=== PATIENT | female | born 1960 | race Caucasian/White ===

== ENCOUNTER → 2019-12-11 08:54 | Outpatient (CLI) | payer BC, SELFPAY ==
--- NOTE | ~2019-12-11 | XR_ITS ---
XR hand RT 2V 12/11/2019 09:15 INDICATION: Right hand pain PROCEDURE: 2 views right hand COMPARISON: No prior studies for comparison. FINDINGS: Fracture, dislocation or subluxation is not identified. The soft tissues appear within norm al limits. No foreign bodies are identified. IMPRESSION: 1: NO ACUTE BONE OR JOINT ABNORMALITY IDENTIFIED. Reviewed, dictated and finalized at location A.
== END ==
PROVIDERS: PCP Family Medicine; Visit Provider Family Medicine
DX: M79.641 Pain in right hand (principal)
CPT/HCPCS: 73120

== ENCOUNTER 2020-03-14 11:30 | Outpatient (CLI) | payer BC, SELFPAY ==
--- NOTE | 2020-03-14 11:30 | ECG_ITS ---
Measurements Intervals [place] Rate: 75 P: 12 HI: 138 QRS: -27 QRSD: 87 T: 26 QT: 377 QTc: 423 Interpretive Statements SINUS RHYTHM LOW QRS VOLTAGE IN PRECORDIAL LEADS POOR R WAVE PROGRESSION, ANTERIOR LEADS BORDERLINE ECG Electronically Signed On 03-14-2020 12:18:38 CDT by John Pelletier D.O.
[2020-03-14 11:55] LABS: Hematocrit 43.4 % (37.0-47.0); Hemoglobin 14.3 g/dL (12.0-15.0)
== END 2020-03-14 11:31 ==
LOC: ANHSURGERY 04-16 11:54
PROVIDERS: PCP Family Medicine; Visit Provider Obstetrics & Gynecology
DX: E78.2 Mixed hyperlipidemia (principal); N89.8 Other specified noninflammatory disorders of vagina
CPT/HCPCS: 36415; 85014; 85018; 93005

== ENCOUNTER 2020-03-19 01:01 | Outpatient (CLI) | payer BC, SELFPAY ==
[2020-03-19 18:10] LABS: SARS-CoV-2 RNA PCR Negative
== END 2020-03-19 01:02 | disposition home or self-care (01) ==
LOC: ANHCOVIDDT 01:01
PROVIDERS: PCP Family Medicine; Visit Provider Obstetrics & Gynecology
DX: Z20.828 Contact with and (suspected) exposure to other viral communicable diseases (principal); Z01.812 Encounter for preprocedural laboratory examination
CPT/HCPCS: 87635; C9803; U0003

== ENCOUNTER 2020-03-21 04:51 | Day surgery (SDC) | payer BC, SELFPAY ==
[2020-03-12 11:51] VITALS: BMI 29.5
--- NOTE | 2020-03-18 08:03 | PM.IMHP ---
H&P: HPI History of Present Illness Chief complaint: Vaginal Cuff Lesion (Low Grade BRITT) Narrative: Sarina Rod is a 59 year old female status post hysterectomy who is admitted for CO2 laser vaginal cuff. She ever cut dysplasia. She is admitted for [facility] Past Medical History Medical History Cataracts, both eyes Endometriosis Hepatitis C antibody test negative Mammogram normal (~09/21/19) Surgical History Surgical History H/O section H/O colonoscopy Family History Family History Grandparent Diabetes mellitus Family history of cardiovascular disease Family history of coronary artery disease Father Hypertension Family history of elevated blood lipids Family history of malignant neoplasm of stomach Sibling Hypertension Family history of elevated blood lipids Mother Family history of rheumatoid arthritis Social History Social History Alcohol intake: current Meds Home Medications and Allergies Home Medications Medication Instructions Recorded Confirmed Type aspirin 81 mg tablet,delayed 81 mg PO DAILY 11/08/19 03/12/20 History release lutein 25 mg-zeaxanthin 5 mg 1 cap PO DAILY 11/08/19 03/12/20 History capsule multivit with 1 tablet PO DAILY 11/08/19 03/12/20 History xclexsfb-ntsk-CG-lutein 8 mg iron-400 mcg-300 mcg tablet albuterol sulfate 90 mcg/actuation 2 inhalation INHALATION Q4H PRN 11/09/19 03/12/20 Rx aerosol inhaler #8.5 gm calcium carbonate 600 mg(1,500 1 tablet PO DAILY 11/09/19 03/12/20 History mg)-vitamin D3 800 unit chewable tablet fluconazole 200 mg tablet 200 mg PO WEEKLY tablet 11/09/19 03/12/20 History atorvastatin 10 mg tablet 10 mg PO DAILY #30 tablet 02/05/20 03/12/20 Rx ibuprofen 600 mg PO TID PRN 03/12/20 03/12/20 History Allergies Allergy/AdvReac Type Severity Reaction Status Date / Time doxycycline AdvReac Abdominal Verified 03/12/20 11:52 Pain Exam Const: General: no acute distress Eyes: General: appearance normal, both eyes and all related structures Neck: Neck: supple and no JVD Thyroid: thyroid normal Resp: Effort & Inspection: normal respiratory effort Auscultation: clear to auscultation bilaterally Cardio: Rate: regular rate Rhythm: regular rhythm GI: Inspection: non-distended GI Palp: Yes Soft to palpation, No Tenderness to palpation present (GI) and No Guarding due to palpation present (GI) Auscultation: normal bowel sounds : General: Yes bladder normal to inspection External Female Exam: normal external appearance Speculum Exam - Cervix: Cervix absent Bimanual exam- vagina & uterus: uterus absent Skin: General skin exam: no rashes or lesions noted Extrem: General: normal to inspection and no edema Psych: Mental Status: mental status grossly normal Affect: normal affect Assessment and Plan Additional Plan Impression: Vaginal cuff dysplasia Plan: CO2 laser of the vaginal cuff
--- NOTE | 2020-03-21 06:31 | WPDHPUPDATE1 ---
History and Physical Update Update Date/Time: 03/21/20 06:31 History and Physical has been reviewed, including an updated exam of the patient. There are NO changes in the patient's condition. Risks, benefits, and alternatives have been discussed and questions answered. Patient agrees to proceed with procedure.
[2020-03-21 07:45] VITALS: BP 129/78; PULSE 79; RESP 18; TEMP 36.7; O2SAT 98
[2020-03-21] MEDS: LACTATED RINGERS 1,000 ML 30 ML IV CONT (08:15)
--- NOTE | 2020-03-21 08:45 | P.PNAN_ITS ---
Anes - Initial Pre Proc Eval Procedure: Operation Date: 03/21/20 09:30 Proposed Procedures p CO2 Laser Of Vaginal Cuff Lesion - Juan Claudio MD Date/Time: 03/21/20 08:45 Surgeon: Juan Claudio MD Pre Op Diagnosis: Vaginal Cuff Lesion (Low Grade BRITT) Patient Data Age: 59 Gender: F Height: 5 ft 4 in Weight: 79.2 kg Last Vital Signs Temp 36.7 C 03/21/20 07:45 Pulse 79 03/21/20 07:45 Resp 18 03/21/20 07:45 BP 129/78 03/21/20 07:45 Pulse Ox 98 03/21/20 07:45 Allergies Allergy/AdvReac Type Severity Reaction Status Date / Time doxycycline AdvReac Abdominal Verified 03/21/20 08:18 Pain Home Medications Medication Instructions Recorded Confirmed Type aspirin 81 mg tablet,delayed 81 mg PO DAILY 11/08/19 03/12/20 History release lutein 25 mg-zeaxanthin 5 mg 1 cap PO DAILY 11/08/19 03/12/20 History capsule multivit with 1 tablet PO DAILY 11/08/19 03/12/20 History csqkwqla-cfsz-XW-lutein 8 mg iron-400 mcg-300 mcg tablet albuterol sulfate 90 mcg/actuation 2 inhalation INHALATION Q4H PRN 11/09/19 03/12/20 Rx aerosol inhaler #8.5 gm calcium carbonate 600 mg(1,500 1 tablet PO DAILY 11/09/19 03/12/20 History mg)-vitamin D3 800 unit chewable tablet fluconazole 200 mg tablet 200 mg PO WEEKLY tablet 11/09/19 03/12/20 History atorvastatin 10 mg tablet 10 mg PO DAILY #30 tablet 02/05/20 03/12/20 Rx ibuprofen 600 mg PO TID PRN 03/12/20 03/12/20 History hydrocodone-acetaminophen [[place]] 1 tablet PO Q4H PRN #20 tablet 03/21/20 Rx Patient hx anesthesia problems: none Family hx anesthesia problems: none PMFSH Past Medical History Medical History Cataracts, both eyes Endometriosis Hepatitis C antibody test negative Mammogram normal (~09/21/19) Surgical History Surgical History H/O section H/O colonoscopy Family History Family History Grandparent Diabetes mellitus Family history of cardiovascular disease Family history of coronary artery disease Father Hypertension Family history of elevated blood lipids Family history of malignant neoplasm of stomach Sibling Hypertension Family history of elevated blood lipids Mother Family history of rheumatoid arthritis Social History Social History Alcohol intake: current Anes - Eval Final PreProcedure Day of Procedure 03/21/20 08:45 Patient weight: obese Heart: regular rate and rhythm Lungs: decreased breath sounds Airway: Mallampati scale class II Neurological: alert and oriented Last oral intake: >/= 8 hours ASA classification: III Emergent: no Anesthetic plan: proceed Anesthesia type and monitoring: general GIVS and standard monitoring Informed Consent: The patient's anesthetic plan and its attendant risks and benefits were discussed with the patient/family/POA. Questions were solicited and answers provided to the satisfaction of the patient/family/POA.
[2020-03-21 09:22] VITALS: BP 104/67; PULSE 72; RESP 16; O2SAT 94
--- NOTE | 2020-03-21 09:22 | PM.PROC ---
Procedure Note - Detailed Date of procedure: 03/21/20 Pre-op diagnosis: Vaginal Cuff Lesion (Low Grade BRITT) Surgeon: Juan Claudio MD Postop diagnosis: Low-grade BRITT Procedure: CO2 laser of low-grade BRITT Anesthesia: IV sedation Findings: Absent cervix and uterus EBL: Scant Complications: None Description of procedure: The patient was prepped draped in normal sterile fashion placed in the dorsal lithotomy position. Under heavy IV sedation the bivalve speculum was placed in the vagina. The vagina was swabbed with ascetic acid. The areas of aceto-white were then burned with a CO2 laser at 10 w per 2nd. This was done in completion. Premarin cream was then placed in the vagina to help prevent scarring. Blood loss was none. Patient tolerated the procedure well. All sponge needle and instrument counts were correct
== END 2020-03-21 10:30 | disposition home or self-care (01) ==
PROVIDERS: PCP Family Medicine; Visit Provider Obstetrics & Gynecology
PROC: (CPT 57061; principal; 2020-03-21 09:30)
DX: N89.8 Other specified noninflammatory disorders of vagina (principal); Z90.710 Acquired absence of both cervix and uterus; Z79.82 Long term (current) use of aspirin
CPT/HCPCS: 57061; A9270; J2250; J2704; J3010; J7120

== ENCOUNTER 2020-10-01 15:46 | Outpatient (CLI) | payer BC, SELFPAY ==
--- NOTE | ~2020-10-01 | MM_ITS ---
EXAMINATION: MM screening [facility] BI w abad HISTORY: Screening mammogram TECHNIQUE: Craniocaudal and mediolateral oblique 3-D tomosynthesis images were obtained and synthetic 2-D images were generated. CAD analysis was submitted and interpreted. COMPARISON: 09/21/2019, 10/12/2018, 09/19/2018, 09/16/2017 BREAST PARENCHYMAL COMPOSITION: There are scattered areas of fibroglandular density. FINDINGS: There is no evidence of suspicious mass, calcification, or architectural distortion to sugg est malignancy in either breast. There has been no suspicious interval change. IMPRESSION: 1. No mammographic evidence of malignancy. 2. Recommend routine screening mammography in one year. BI-RADS Category 1: Negative Reviewed, dictated and finalized at location A. BLOWER
== END 2020-10-01 15:47 | disposition home or self-care (01) ==
PROVIDERS: PCP Family Medicine; Visit Provider Obstetrics & Gynecology
DX: Z12.31 Encounter for screening mammogram for malignant neoplasm of breast (principal)
CPT/HCPCS: 77063; 77067

== ENCOUNTER 2020-11-01 00:52 | Outpatient (CLI) | payer BC, SELFPAY ==
[2020-11-01 18:47] LABS: SARS-CoV-2 RNA PCR Negative
== END 2020-11-01 00:53 | disposition home or self-care (01) ==
LOC: ANHCOVIDDT 00:53
PROVIDERS: PCP Family Medicine; Visit Provider Internal Medicine Gastroenterology
DX: Z01.812 Encounter for preprocedural laboratory examination (principal); Z20.822 Contact with and (suspected) exposure to COVID-19
CPT/HCPCS: C9803; U0003; U0005

== ENCOUNTER 2020-11-05 01:18 | Day surgery (SDC) | payer BC, SELFPAY ==
[2020-10-21 13:58] VITALS: BMI 28.3
[2020-11-05] MEDS: LACTATED RINGERS 1,000 ML 150 ML IV CONT (06:30)
[2020-11-05 06:33] VITALS: BP 128/77; PULSE 85; RESP 18; TEMP 36.6; O2SAT 98; BMI 28.2
--- NOTE | 2020-11-05 06:58 | WPDANESEPPF ---
Anes - Initial Pre Proc Eval Procedure: Operation Date: 11/05/20 07:30 Proposed Procedures p Screening Colonoscopy - Nilton Swift MD Date/Time: 11/05/20 06:58 Surgeon: Nilton Swift MD Pre Op Diagnosis: Neoplasm Screening Patient Data Age: 60 Gender: F Height: 1.63 m Weight: 74.6 kg Last Vital Signs Temp 36.6 C 11/05/20 06:33 Pulse 85 11/05/20 06:33 Resp 18 11/05/20 06:33 BP 128/77 11/05/20 06:33 Pulse Ox 98 11/05/20 06:33 Allergies Allergy/AdvReac Type Severity Reaction Status Date / Time doxycycline AdvReac Abdominal Verified 11/05/20 06:21 Pain Home Medications Medication Instructions Recorded Confirmed Type aspirin 81 mg tablet,delayed 81 mg PO DAILY 11/08/19 10/21/20 History release lutein 25 mg-zeaxanthin 5 mg 1 cap PO DAILY 11/08/19 10/21/20 History capsule multivit with 1 tablet PO DAILY 11/08/19 10/21/20 History dntzzzwn-chhv-EV-lutein 8 mg iron-400 mcg-300 mcg tablet albuterol sulfate 90 mcg/actuation 2 inhalation INHALATION Q4H PRN 11/09/19 10/21/20 Rx aerosol inhaler #8.5 gm calcium carbonate 600 mg(1,500 1 tablet PO DAILY 11/09/19 10/21/20 History mg)-vitamin D3 800 unit chewable tablet ibuprofen 600 mg PO TID PRN 03/12/20 10/21/20 History atorvastatin 20 mg tablet 20 mg PO DAILY #90 tablet 08/26/20 10/21/20 Rx sodium,potassium,mag sulfates 17.5 See Rx Instructions PO .COMPLEX 10/20/20 Rx gram-3.13 gram-1.6 gram oral soln #354 ml terbinafine HCl 250 mg PO DAILY 10/21/20 10/21/20 History Patient hx anesthesia problems: none Family hx anesthesia problems: none PMFSH Past Medical History Medical History (Updated 11/05/20 @ 07:00 by Fortino Bullock MD) Cataracts, both eyes Endometriosis Hepatitis C antibody test negative Mammogram normal (~09/21/19) Mixed hyperlipidemia Nicotine dependence, unspecified, uncomplicated Overweight Surgical History Surgical History H/O section H/O colonoscopy Family History Family History Grandparent Diabetes mellitus Family history of cardiovascular disease Family history of coronary artery disease Father Hypertension Family history of elevated blood lipids Family history of malignant neoplasm of stomach Sibling Hypertension Family history of elevated blood lipids Mother Family history of rheumatoid arthritis Social History Social History Smoking packs per day: 0.5 Smoking cigarettes per day: 10.0 Years smoked: 60 Smoking pack-years: 30.00 Smoking status: Current every day smoker Tobacco type: cigarettes Alcohol intake: current Substance use type: does not use Living arrangements: with family Spiritual care concerns: No Anes - Eval Final PreProcedure Day of Procedure 11/05/20 06:58 Patient weight: overweight Heart: regular rate and rhythm Lungs: clear to auscultation and normal air movement Airway: Mallampati scale class II Neurological: alert and oriented Last oral intake: >/= 8 hours ASA classification: II Emergent: no Anesthetic plan: proceed Anesthesia type and monitoring: general GIVS Informed Consent: The patient's anesthetic plan and its attendant risks and benefits were discussed with the patient/family/POA. Questions were solicited and answers provided to the satisfaction of the patient/family/POA.
--- NOTE | 2020-11-05 07:59 | WPDGICN ---
Assessment and Plan Assessment and plan (1) Encounter for screening colonoscopy: Code(s): Z12.11 - Encounter for screening for malignant neoplasm of colon Status: Acute Assessment and Plan: Patient states that her father has had intestinal cancer she believes is colon cancer. Plan is for surveillance colonoscopy at this time. She may wish to consider follow-up colonoscopy at 5 year intervals in the future. Further recommendations will be given after endoscopy. GI Consult Note Consult date/time: 11/05/20 07:59 HPI: Sarina Rod is a 60 year old female Presents for screening colonoscopy. Patient reports that her father and her father side of the family has multiple cases of colon cancer. Patient presents for screening exam today. She states that her current weight appetite bowel movements are normal. She denies abdominal pain. She has had no bleeding. Family history is as stated. Patient reports last colonoscopy was 10 least 10 years ago. Review of Systems Review of Systems: All systems reviewed & are unremarkable except as noted in HPI and below PMFSH Past Medical History Medical History (Updated 11/05/20 @ 08:01 by Nilton Swift MD) Cataracts, both eyes Endometriosis Hepatitis C antibody test negative Mammogram normal (~09/21/19) Mixed hyperlipidemia Nicotine dependence, unspecified, uncomplicated Overweight Surgical History Surgical History H/O section H/O colonoscopy Family History Family History Grandparent Diabetes mellitus Family history of cardiovascular disease Family history of coronary artery disease Father Hypertension Family history of elevated blood lipids Family history of malignant neoplasm of stomach Sibling Hypertension Family history of elevated blood lipids Mother Family history of rheumatoid arthritis Social History Social History Smoking packs per day: 0.5 Smoking cigarettes per day: 10.0 Years smoked: 60 Smoking pack-years: 30.00 Smoking status: Current every day smoker Tobacco type: cigarettes Alcohol intake: current Substance use type: does not use Living arrangements: with family Spiritual care concerns: No Meds Home Medications and Allergies Home Medications Medication Instructions Recorded Confirmed Type aspirin 81 mg tablet,delayed 81 mg PO DAILY 11/08/19 10/21/20 History release lutein 25 mg-zeaxanthin 5 mg 1 cap PO DAILY 11/08/19 10/21/20 History capsule multivit with 1 tablet PO DAILY 11/08/19 10/21/20 History zoprgxmu-eyon-IM-lutein 8 mg iron-400 mcg-300 mcg tablet albuterol sulfate 90 mcg/actuation 2 inhalation INHALATION Q4H PRN 11/09/19 10/21/20 Rx aerosol inhaler #8.5 gm calcium carbonate 600 mg(1,500 1 tablet PO DAILY 11/09/19 10/21/20 History mg)-vitamin D3 800 unit chewable tablet ibuprofen 600 mg PO TID PRN 03/12/20 10/21/20 History atorvastatin 20 mg tablet 20 mg PO DAILY #90 tablet 08/26/20 10/21/20 Rx sodium,potassium,mag sulfates 17.5 See Rx Instructions PO .COMPLEX 10/20/20 Rx gram-3.13 gram-1.6 gram oral soln #354 ml terbinafine HCl 250 mg PO DAILY 10/21/20 10/21/20 History Allergies Allergy/AdvReac Type Severity Reaction Status Date / Time doxycycline AdvReac Abdominal Verified 11/05/20 06:21 Pain Vital Signs Vital Signs - 24 hr 11/05/20 06:33 Temperature 97.8 F Pulse Rate 85 Respiratory Rate 18 Blood Pressure 128/77 Pulse Oximetry 98 Exam Narrative: Exam Narrative: Physical exam reveals patient to be alert. Vital signs are stable. HEENT exam is unremarkable. Lungs are clear to auscultation and percussion. Heart is without murmur or extra sounds. Abdominal exam bowel sounds are present soft nontender with no organomegaly. Digital external rectal e
[2020-11-05 08:02] VITALS: BP 104/68; PULSE 68; RESP 15; O2SAT 95
[2020-11-05 08:12] VITALS: BP 113/75; PULSE 65; RESP 13; O2SAT 98
[2020-11-05 08:22] VITALS: BP 111/80; PULSE 68; RESP 13; O2SAT 99
== END 2020-11-05 08:39 | disposition home or self-care (01) ==
PROVIDERS: PCP Family Medicine; Visit Provider Internal Medicine Gastroenterology
PROC: 0DJD8ZZ Inspection of Lower Intestinal Tract, Via Natural or Artificial Opening Endoscopic (ICD-10-PCS; CPT 45378; principal; 2020-11-05 07:30)
DX: Z12.11 Encounter for screening for malignant neoplasm of colon (principal); Z79.82 Long term (current) use of aspirin; Z79.51 Long term (current) use of inhaled steroids; N80.9 Endometriosis, unspecified; E78.2 Mixed hyperlipidemia; F17.210 Nicotine dependence, cigarettes, uncomplicated; K64.8 Other hemorrhoids; Z80.0 Family history of malignant neoplasm of digestive organs
CPT/HCPCS: 45378; J2704; J7120

== ENCOUNTER → 2021-02-27 10:13 | Outpatient (CLI) | payer BC, SELFPAY ==
--- NOTE | ~2021-02-27 | CT_ITS ---
EXAMINATION: CT lung screening DATE: 02/27/2021 10:34 INDICATION: Personal history of nicotine dependence, current smoker with 35 pack year history TECHNIQUE: Computed tomography (CT) of the chest was performed without intravenous contrast. The dose -length product (DLP) was 87.73 mGy-cm. Automated exposure control and iterative reconstruction techn [employer] were employed. COMPARISON: None FINDINGS: There is a 2 mm nodule of the left lung apex on image 11. There are is mild emphysema. The lungs are free of acute opacities. There is no pleural effusion or pneumothorax. No pathologically en larged thoracic lymph nodes are identified. The heart size is normal. Calcified coronary artery ather osclerosis is noted. There is mild thoracic spondylosis. IMPRESSION: 1. Lung-RADS category 2: Benign appearance or behavior. Continue annual screening with noncontrast lo w-dose chest CT in 12 months. Reviewed, dictated and finalized at location B. IMPRESSION: 1. Lung-RADS category 2: Benign appearance or behavior. Continue annual screeni ng with noncontrast low-dose chest CT in 12 months.
== END ==
PROVIDERS: Visit Provider Family Medicine
DX: Z12.2 Encounter for screening for malignant neoplasm of respiratory organs (principal); Z87.891 Personal history of nicotine dependence
CPT/HCPCS: 71271

== ENCOUNTER 2021-04-29 15:17 | Outpatient (CLI) | payer BC, SELFPAY ==
--- NOTE | 2021-05-20 19:10 | WPDHOMESLEEP ---
Sleep Study - Home Unattended Date of Study: 04/29/21 Ordering Provider: Ricci Mims APRN Interpreting Provider: Jaylyn Casas MD Home Sleep Study Type: Apnea Link Air Height: 1.63 m Weight: 76.204 kg Body Mass Index: 28.8 Neck Circumference (inches): 15 [place]: 7 Reason for Sleep Study Hypersomnia Sleep History Sarina Rod is 60 years old, has frequent loud snoring and feels tired most days. She does not wake at night feeling short of breath, however she frequently wakes at night with heartburn, belching or coughing. She frequently sweats excessively at night. She constantly falls asleep in the day, never involuntarily and never while driving. She does not have loss of muscle tone with strong emotion. She occasionally has trouble in the day due to excessive sleepiness. She does not feel paralyzed on waking or falling asleep. She has frequent vivid dreamlike scenes on waking and falling asleep. She is not afraid to go to sleep. She rarely has nightmares. She frequently remembers her dreams and frequently has racing thoughts. She rarely feels sad or depressed. She occasionally has anxiety. She rarely has muscular tension. She occasionally notices parts of her body jerking. She does not kick at night. She occasionally has crawling and aching feelings in her legs. She occasionally has leg pain at night. She does not have morning jaw pain. She occasionally grinds her teeth during sleep. She rarely is bothered by pain during the day, rarely awakened by pain at night, frequently wakes up feeling stiff in the morning, occasionally wakes up with sore achy muscles and occasionally wakes up with pain in the neck and spine. She has palpitations and fatigue she takes antacids regularly. Normal bedtime is 10:00 p.m. falling asleep within an hour, typically waking 2-3 times at night to urinate, returning to sleep in 10 minutes. She wakes the morning between 5 and 6:00 a.m.. Her weekend schedule is the same. She estimates getting 6-7 hours of sleep at night. She takes naps in the afternoon or evening and a short nap may be refreshing. She feels better in the morning compared to other times of day. Habits: tobacco half pack per day. Caffeine, 4-5 per day. Alcohol 4 per week [facility] Past Medical History Medical History (Updated 05/20/21 @ 20:20 by Jaylyn Casas MD) Cataracts, both eyes Endometriosis Hepatitis C antibody test negative Mammogram normal (~09/21/19) Mixed hyperlipidemia Nicotine dependence, unspecified, uncomplicated Overweight Prehypertension Surgical History Surgical History H/O section H/O colonoscopy Family History Family History Grandparent Diabetes mellitus Family history of cardiovascular disease Family history of coronary artery disease Father Hypertension Family history of elevated blood lipids Family history of malignant neoplasm of stomach Sibling Hypertension Family history of elevated blood lipids Mother Family history of rheumatoid arthritis Social History Social History Smoking packs per day: 0.5 Smoking cigarettes per day: 10.0 Years smoked: 60 Smoking pack-years: 30.00 Tobacco type: cigarettes Alcohol intake: current Substance use type: does not use Spiritual care concerns: No Medications Home Medications Medication Instructions Recorded Confirmed Type aspirin 81 mg tablet,delayed 81 mg PO DAILY 11/08/19 02/17/21 History release lutein 25 mg-zeaxanthin 5 mg 1 cap PO DAILY 11/08/19 02/17/21 History capsule multivit with 1 tablet PO DAILY 11/08/19 02/17/21 History rkhkdcmw-sznu-DW-lutein 8 mg iron-400 mcg-300 mcg tablet albuterol sulfate 90 mcg/actuation 2 inhalation INHALATION Q4H PRN 11/09/19 02/17/21 Rx aerosol inhaler #8.5 gm calcium carbonate 600 mg(1
[2021-05-20 20:22] VITALS: BMI 28.8
== END 2021-04-30 09:12 | disposition home or self-care (01) ==
LOC: ANHCSM 15:18
PROVIDERS: Visit Provider Nurse Practitioner Family
DX: G47.33 Obstructive sleep apnea (adult) (pediatric) (principal); G47.10 Hypersomnia, unspecified
CPT/HCPCS: 95806

== ENCOUNTER → 2021-05-08 00:38 | Outpatient (CLI) | payer BC, SELFPAY ==
[2021-05-09 01:53] LABS: SARS-CoV-2 RNA PCR Negative
== END ==
PROVIDERS: PCP Family Medicine; Visit Provider Family Medicine
DX: Z20.822 Contact with and (suspected) exposure to COVID-19 (principal)
CPT/HCPCS: C9803; U0003; U0005

== ENCOUNTER 2021-07-21 08:34 | Outpatient (CLI) | payer BC, SELFPAY ==
--- NOTE | 2021-08-05 14:58 | WPDSLEEPSTUD ---
Sleep Study Date of Study: 07/21/21 Ordering Provider: Ricci Mims APRN Interpreting Physician: Jaylyn Casas MD Sleep Study Type: CPAP Titration Height: 1.63 m Weight: 77.1 kg Body Mass Index: 29.1 Neck Circumference (inches): 15 [place]: 7 Reason for Sleep Study * 04/29/2021 Home sleep test using ApneaLink with mild obstructive sleep apnea, AHI 9, desaturation to 87%, and snoring. The patient has pre-hypertension and hypersomnolence, and is a candidate for PAP therapy. She presents for a CPAP titration. Sleep History Sarina Rod is a 60-year-old woman who has frequent loud snoring and feels tired most days. She does not wake at night feeling short of breath, however she frequently wakes at night with heartburn, belching or coughing. She frequently sweats excessively at night. She constantly falls asleep in the day, never involuntarily and never while driving. She does not have loss of muscle tone with strong emotion. She occasionally has trouble in the day due to excessive sleepiness. She does not feel paralyzed on waking or falling asleep. She has frequent vivid dreamlike scenes on waking and falling asleep. She is not afraid to go to sleep. She rarely has nightmares. She frequently remembers her dreams and frequently has racing thoughts. She rarely feels sad or depressed. She occasionally has anxiety. She rarely has muscular tension. She occasionally notices parts of her body jerking. She does not kick at night. She occasionally has crawling and aching feelings in her legs. She occasionally has leg pain at night. She does not have morning jaw pain. She occasionally grinds her teeth during sleep. She rarely is bothered by pain during the day, rarely awakened by pain at night, frequently wakes up feeling stiff in the morning, occasionally wakes up with sore achy muscles and occasionally wakes up with pain in the neck and spine. She has palpitations and fatigue she takes antacids regularly. Normal bedtime is 10:00 p.m. falling asleep within an hour, typically waking 2-3 times at night to urinate, returning to sleep in 10 minutes. She wakes the morning between 5 and 6:00 a.m.. Her weekend schedule is the same. She estimates getting 6-7 hours of sleep at night. She takes naps in the afternoon or evening and a short nap may be refreshing. She feels better in the morning compared to other times of day. Habits: tobacco half pack per day. Caffeine, 4-5 per day. Alcohol 4 per week [facility] Past Medical History Medical History Cataracts, both eyes Endometriosis Hepatitis C antibody test negative Mammogram normal (~09/21/19) Mixed hyperlipidemia Nicotine dependence, unspecified, uncomplicated Overweight Prehypertension Surgical History Surgical History H/O section H/O colonoscopy Family History Family History Grandparent Diabetes mellitus Family history of cardiovascular disease Family history of coronary artery disease Father Hypertension Family history of elevated blood lipids Family history of malignant neoplasm of stomach Sibling Hypertension Family history of elevated blood lipids Mother Family history of rheumatoid arthritis Social History Social History Smoking packs per day: 0.5 Smoking cigarettes per day: 10.0 Years smoked: 60 Smoking pack-years: 30.00 Tobacco type: cigarettes Alcohol intake: current Substance use type: does not use Spiritual care concerns: No Medications Home Medications Medication Instructions Recorded Confirmed Type aspirin 81 mg tablet,delayed 81 mg PO DAILY 11/08/19 06/25/21 History release lutein 25 mg-zeaxanthin 5 mg 1 cap PO DAILY 11/08/19 06/25/21 History capsule multivit with 1 tablet PO DAILY 11/08/19
[2021-08-12 12:17] VITALS: BMI 29.1
== END 2021-07-22 06:58 | disposition home or self-care (01) ==
LOC: ANHCSM 08:36
PROVIDERS: PCP Family Medicine; Visit Provider Nurse Practitioner Family
DX: G47.33 Obstructive sleep apnea (adult) (pediatric) (principal)
CPT/HCPCS: 95811

== ENCOUNTER 2021-10-22 07:31 | Outpatient (CLI) | payer BC, SELFPAY ==
--- NOTE | ~2021-10-22 | MM_ITS ---
EXAMINATION: MM screening danii BI w abad HISTORY: Screening TECHNIQUE: Craniocaudal and mediolateral oblique 3-D tomosynthesis images were obtained and synthetic 2-D images were generated. CAD analysis was submitted and interpreted. COMPARISON: Comparison to multiple prior studies sequentially, with oldest reviewed study dated 02/2016. BREAST PARENCHYMAL COMPOSITION: Breast composed of scattered areas of fibroglandular density FINDINGS: There is no evidence of suspicious mass, calcification, or architectural distortion to sugg est malignancy in either breast. There has been no suspicious interval change. IMPRESSION: 1. No mammographic evidence of malignancy. 2. Recommend routine screening mammography in one year. BI-RADS Category 1: Negative Reviewed, dictated and finalized at location A. TRANSPORT DRIVER
== END 2021-10-22 07:32 | disposition home or self-care (01) ==
LOC: ANHIMG 07:33
PROVIDERS: PCP Family Medicine; Visit Provider Obstetrics & Gynecology
DX: Z12.31 Encounter for screening mammogram for malignant neoplasm of breast (principal)
CPT/HCPCS: 77063; 77067

== ENCOUNTER → 2022-05-25 16:18 | Outpatient (CLI) | payer BC, SELFPAY ==
--- NOTE | ~2022-05-25 | XR_ITS ---
EXAMINATION: XR hand RT min 3V INDICATION: Right hand pain TECHNIQUE: Three views of the right hand are obtained. COMPARISON: 12/11/2019 FINDINGS: There is mild osteoarthritis of multiple interphalangeal joints. No fracture is identified. Bone alignment is normal. Soft tissues are unremarkable. IMPRESSION: 1. Mild osteoarthritis. Reviewed, dictated and finalized at location B. IMPRESSION: 1. Mild osteoarthritis.
--- NOTE | ~2022-05-25 | XR_ITS ---
XR knee RT min 4V 05/25/2022 16:43 Indication: Right knee pain Procedure: 4 views right knee Comparison: No prior studies for comparison. Findings: No fracture, subluxation or dislocation. No joint effusion. Mild patellofemoral compartment osteoarthritis. No foreign bodies. Impression: 1: Mild patellofemoral compartment osteoarthritis. Reviewed, dictated and finalized at location A. Impression: 1: Mild patellofemoral compartment osteoarthritis.
== END ==
PROVIDERS: PCP Family Medicine; Visit Provider Family Medicine
DX: M19.041 Primary osteoarthritis, right hand (principal); M17.11 Unilateral primary osteoarthritis, right knee
CPT/HCPCS: 73130; 73564

== ENCOUNTER → 2022-08-30 10:59 | Outpatient (CLI) | payer BC, SELFPAY ==
--- NOTE | ~2022-08-30 | CT_ITS ---
EXAMINATION: CT lung screening DATE: 08/30/2022 11:16 INDICATION: History of tobacco dependence. TECHNIQUE: Computed tomography (CT) of the chest was performed without intravenous contrast. The dose -length product was 89.95 mGy-cm. Automated exposure control and iterative reconstruction technique w ere employed. COMPARISON: CT dated 02/27/2021 FINDINGS: Lung bases are unremarkable. No thoracic lymphadenopathy. There is atherosclerosis. The upp er abdomen is unremarkable. There are stable upper lobe nodules measuring 3 mm or less. There is emph ysema. No endobronchial lesions. No pneumothorax. Mild thoracic spondylosis. No focal lytic or blasti c lesions. IMPRESSION: 1. Lung-RADS category 2: Benign appearance or behavior. Continue annual screening with noncontrast lo w-dose chest CT in 12 months. Reviewed, dictated and finalized at location A. RNAL GRINDER TENDER IMPRESSION: 1. Lung-RADS category 2: Benign appearance or behavior. Continue annual screeni ng with noncontrast low-dose chest CT in 12 months.
== END ==
PROVIDERS: PCP Family Medicine; Visit Provider Nurse Practitioner
DX: Z12.2 Encounter for screening for malignant neoplasm of respiratory organs (principal); Z87.891 Personal history of nicotine dependence
CPT/HCPCS: 71271

== ENCOUNTER 2022-09-19 17:03 | Emergency (ER) | payer BC, SELFPAY ==
--- NOTE | 2022-09-19 17:08 | ED.EAR ---
HPI - Ear Problem General Chief complaint: Ear Stated complaint: EARACHE Time Seen by Provider: 09/19/22 17:08 Source: patient Mode of arrival: ambulatory Limitations: no limitations History of Present Illness HPI Narrative: Today's is a 62-year-old female patient presenting to clinic today with complaints of an earache, cough, and congestion. She reports that the ear discomfort has been going on for a couple weeks but is also complain of some cough congestion. She denies any fever chills. She denies any shortness of breath or chest pain. Related Data Home Medications Medication Instructions Recorded Confirmed aspirin 81 mg tablet,delayed 81 mg PO DAILY 11/08/19 07/06/22 release multivit with 1 tablet PO DAILY 11/08/19 07/06/22 ytdzvjhb-ddco-BW-lutein 8 mg iron-400 mcg-300 mcg tablet (Centrum Silver Women) calcium carbonate 600 mg-vitamin 1 tablet PO DAILY 11/09/19 07/06/22 D3 20 mcg (800 unit) chewable tablet (Caltrate 600 plus D) ibuprofen 600 mg tablet 600 mg PO TID PRN Pain 03/12/20 07/06/22 ascorbic acid (vitamin C) 500 mg mg PO 05/25/22 07/06/22 capsule cholecalciferol (vitamin D3) 25 25 mcg PO DAILY 05/25/22 07/06/22 mcg (1,000 unit) capsule lutein 25 mg-zeaxanthin 5 mg 1 cap PO .QOD 05/25/22 07/06/22 capsule (Ocuvite Lutein) vitamin B complex-folic acid 0.4 1 tablet PO DAILY 05/25/22 07/06/22 mg tablet (Super B Maxi Complex) Allergies Allergy/AdvReac Type Severity Reaction Status Date / Time doxycycline AdvReac Abdominal Verified 09/19/22 17:11 Pain Review of Systems Review of Systems: Pertinent positives per HPI. Patient denies any fever, chills, rash, headache, visual changes, dizziness, shortness of breath, chest pain, palpitations, nausea, vomiting, diarrhea, constipation, abdominal pain, or any urinary issues. [facility] Past Medical History Medical History Cataracts, both eyes Endometriosis Hepatitis C antibody test negative Mammogram normal (~12/20/19) Mixed hyperlipidemia Nicotine dependence, unspecified, uncomplicated Overweight Prehypertension Surgical History Surgical History H/O section (~1999) H/O colonoscopy History of cataract surgery (~2015) History of hysterectomy (~07/16/16) Family History Family History Grandparent Diabetes mellitus Family history of cardiovascular disease Family history of coronary artery disease Father , age 52 Hypertension Family history of elevated blood lipids Stomach cancer Sibling Hypertension 4 of 5 brothers Family history of elevated blood lipids Diabetes mellitus 2 of 5 brothers Acute myocardial infarction 1 brother Lung cancer 1 brother @ age 64 Brain cancer 1 brother @ age 64 Mother Family history of rheumatoid arthritis MRSA (methicillin resistant Staphylococcus aureus) Social History Social History Smoking packs per day: 0.5 Smoking cigarettes per day: 10.0 Years smoked: 60 Smoking pack-years: 30.00 Smoking status: Current some day smoker Tobacco type: cigarettes Alcohol intake: current Substance use: never Substance use type: does not use Spiritual care concerns: No Comments At the time of my signature, I reviewed and agree with the nursing past medical, surgical, social, and family history. There is no relevant family history pertinent to the patient complaint. Exam Narrative: General: Well-developed, well nourished, in no apparent distress Head: Normocephalic, atraumatic Eyes: Pupils equally round and reactive to light bilaterally, EOM intact, sclera and conjunctive clear, no discharge, lids normal Ears: TMs intact and clear, ear canals clear, no drainage, grossly
[2022-09-19 17:10] VITALS: BP 133/85; PULSE 78; RESP 16; TEMP 36.6; O2SAT 99
[2022-09-19 17:12] VITALS: BP 133/85; PULSE 78; RESP 16; TEMP 36.6; O2SAT 99
== END 2022-09-19 17:26 | disposition home or self-care (01) ==
PROVIDERS: Emergency Provider Nurse Practitioner Family; PCP Family Medicine
DX: J20.9 Acute bronchitis, unspecified (principal); H69.93 Unspecified Eustachian tube disorder, bilateral; F17.210 Nicotine dependence, cigarettes, uncomplicated; N80.9 Endometriosis, unspecified; E78.2 Mixed hyperlipidemia; H26.9 Unspecified cataract
CPT/HCPCS: 99213; G0463

== ENCOUNTER 2022-10-12 16:09 | Outpatient (NON) | payer BC, SELFPAY | END 2022-10-12 16:10 | disposition home or self-care (01) | LOC: ANHLAB 10-13 16:11 | PROVIDERS: PCP Family Medicine; Visit Provider Nurse Practitioner | DX: C44.329 Squamous cell carcinoma of skin of other parts of face (principal) | CPT/HCPCS: 88305 ==

== ENCOUNTER 2022-11-01 11:52 | Outpatient (NON) | payer BC, SELFPAY | END 2022-11-01 11:53 | disposition home or self-care (01) | LOC: ANHLAB 11:52 | PROVIDERS: PCP Family Medicine; Visit Provider Nurse Practitioner | DX: C44.92 Squamous cell carcinoma of skin, unspecified (principal) | CPT/HCPCS: 88305; 88331 ==

== ENCOUNTER 2022-11-18 07:36 | Outpatient (CLI) | payer BC, SELFPAY ==
--- NOTE | ~2022-11-18 | MM_ITS ---
EXAMINATION: MM screening danii BI w abad HISTORY: Screening mammogram TECHNIQUE: Craniocaudal and mediolateral oblique 3-D tomosynthesis images were obtained and synthetic 2-D images were generated. CAD analysis was submitted and interpreted. COMPARISON: 10/22/2021, 10/01/2020, 09/21/2019 bilateral screening mammogram examinations BREAST PARENCHYMAL COMPOSITION: There are scattered areas of fibroglandular density. FINDINGS: There is no evidence of suspicious mass, calcification, or architectural distortion to sugg est malignancy in either breast. There has been no suspicious interval change. IMPRESSION: 1. No mammographic evidence of malignancy. 2. Recommend routine screening mammography in one year. BI-RADS Category 1: Negative Reviewed, dictated and finalized at location A. MIXER
== END 2022-11-18 07:37 | disposition home or self-care (01) ==
LOC: ANHIMG 07:37
PROVIDERS: PCP Family Medicine; Visit Provider Obstetrics & Gynecology
DX: Z12.31 Encounter for screening mammogram for malignant neoplasm of breast (principal)
CPT/HCPCS: 77063; 77067

== ENCOUNTER 2023-09-06 07:57 | Outpatient (CLI) | payer BC, SELFPAY ==
--- NOTE | ~2023-09-06 | CT_ITS ---
CT Scan of the Chest without Contrast: Clinical Indication: Lung cancer screening, smoking history Technique: Contiguous sections were acquired throughout the chest without intravenous contrast. Dose reduction technique was used on this scan by utilizing automated exposure control and iterative recon struction technique. The dose-length product (DLP) was 73.65 mGy-cm. COMPARISON: 08/30/2022 Findings: There is no evidence of any significant mediastinal, hilar or axillary lymphadenopathy. The mediastin al soft tissues appear normal. There is no evidence of pleural or pericardial effusion. The lungs are clear. No pulmonary nodules or infiltrates are noted. Images through the upper abdomen reveal no abnormalities. Impression: Lung RADS 1: Negative. 12 month follow-up screening CT advised. Reviewed, dictated and finalized at location . T AND INSTRUMENT ENGINEER Impression: Lung RADS 1: Negative. 12 month follow-up screening CT advised.
== END 2023-09-06 07:58 | disposition home or self-care (01) ==
PROVIDERS: PCP Family Medicine; Visit Provider Family Medicine
DX: Z12.2 Encounter for screening for malignant neoplasm of respiratory organs (principal); Z87.891 Personal history of nicotine dependence
CPT/HCPCS: 71271

== ENCOUNTER 2024-01-16 07:49 | Outpatient (CLI) | payer BC, SELFPAY ==
--- NOTE | ~2024-01-16 | DEXA_ITS ---
Bone Density Report Name: RANDI STROUD Age: 63 Sex: Female Ethnicity: White Date of : 1960 Indication: postmenopausal; screening for osteoporosis; parental hip fracture; height loss; hysterectomy; Referring Provider: EDENILSON MACHUCA Study: Bone densitometry was performed. Exam Date: January 16, 2024 Accession number: [id number] Bone Density: Region BMD T-score Z-score Classification AP Spine(L1-L4) 0.938 -1.0 0.7 Normal Femoral Neck (Left) 0.666 -1.6 -0.2 Osteopenia Total Hip (Left) 0.867 -0.6 0.5 Normal Femoral Neck (Right) 0.699 -1.4 0.1 Osteopenia Total Hip (Right) 0.907 -0.3 0.8 Normal Total Hip Mean 0.887 -0.5 0.7 Normal World Health Organization criteria for BMD impression classify patients as: Normal (T-score at or above -1.0), Osteopenia (T-score between -1.0 and -2.5), or Osteoporosis (T-score at or below -2.5). 10-year Fracture Risk(1): Major Osteoporotic Fracture 17% Hip Fracture 1.6% Reported Risk Factors: [place] (), Neck BMD=0.666, BMI=29.6, parental fracture, smoking (1) FRAX(R) Version 3.08. Fracture probability calculated for an untreated patient. Fracture probability may be lower if the patient has received treatment. Clinical Information Provided by Patient: Parent has had a hip fracture Smokes Has used the following medications: Vitamin D, Calcium Has the following medical conditions: Hysterectomy Patient maximum height was 65 Menopause Age: 52 Drinks caffeinated beverages Onset of menses at age 13 Number of children 1 Impression: The patient has low bone mass, based on the Left Femoral Neck T-score. The patient has an estimated ten-year risk of hip fracture of 1.6% and an estimated ten-year risk of major fracture of 17%, based on the WHO FRAX algorithm. The patient has risk factors, including: parental hip fracture, smoking. Discussion: BONE DENSITY IS LOW AT ONE OR MORE SKELETAL SITES. This patient's lowest T-score is low at one or more skeletal sites. It meets the World Health Organization's (WHO) criteria for ?low bone mass? (T-score between -1.0 and -2.5). The patient's 10-year risk of fracture as calculated by FRAX is less than the threshold where pharmacological therapy is recommended by the National Osteoporosis Foundation (NOF). However, all treatment decisions require clinical judgment and consideration of individual patient factors, including patient preferences, comorbidities, previous drug use, risk factors not captured in the FRAX model (e.g., frailty, falls, vitamin D deficiency, increased bone turnover, interval significant decline in bone density) and possible under or overestimation of fracture risk by FRAX. The patient should follow a healthful lifestyle (good nutrition with adequate calcium and vitamin D, and approp
--- NOTE | ~2024-01-16 | MM_ITS ---
EXAMINATION: MM screening danii BI w abad HISTORY: Screening TECHNIQUE: Craniocaudal and mediolateral oblique 3-D tomosynthesis images were obtained and synthetic 2-D images were generated. CAD analysis was submitted and interpreted. COMPARISON: Comparison to multiple prior studies sequentially, with oldest reviewed study dated 09/04. BREAST PARENCHYMAL COMPOSITION: Not dense: There are scattered areas of fibroglandular density. FINDINGS: There is no evidence of suspicious mass, calcification, or architectural distortion to sugg est malignancy in either breast. There has been no suspicious interval change. IMPRESSION: 1. No mammographic evidence of malignancy. 2. Recommend routine screening mammography in one year. BI-RADS Category 1: Negative Reviewed, dictated and finalized at location A.
== END 2024-01-16 07:50 | disposition home or self-care (01) ==
LOC: ANHIMG 07:55
PROVIDERS: PCP Family Medicine; Visit Provider Family Medicine
DX: Z12.31 Encounter for screening mammogram for malignant neoplasm of breast (principal); Z13.820 Encounter for screening for osteoporosis; Z78.0 Asymptomatic menopausal state; M85.88 Other specified disorders of bone density and structure, other site; M85.852 Other specified disorders of bone density and structure, left thigh; M85.851 Other specified disorders of bone density and structure, right thigh
CPT/HCPCS: 77063; 77067; 77080

== ENCOUNTER 2024-06-15 10:50 | Outpatient (CLI) | payer BC, SELFPAY | END 2024-06-15 10:51 | disposition home or self-care (01) | LOC: ANHAUDIO 10:50 | PROVIDERS: PCP Family Medicine; Visit Provider Family Medicine | DX: H90.3 Sensorineural hearing loss, bilateral (principal) | CPT/HCPCS: 92557; 92567 ==

== ENCOUNTER 2024-11-07 08:19 | Outpatient (CLI) | payer BC, SELFPAY ==
--- NOTE | ~2024-11-07 | CT_ITS ---
CT Scan of the Chest without Contrast: Clinical Indication: Lung cancer screening, nicotine dependence Technique: Contiguous sections were acquired throughout the chest without intravenous contrast. Dose reduction technique was used on this scan by utilizing automated exposure control and iterative recon struction technique. The dose-length product (DLP) was 104.35 mGy-cm. COMPARISON: 09/06/2023 Findings: There is no evidence of any significant mediastinal, hilar or axillary lymphadenopathy. The mediastin al soft tissues appear normal. There is no evidence of pleural or pericardial effusion. The lungs are clear. No pulmonary nodules or infiltrates are noted. Images through the upper abdomen reveal no abnormalities. Impression: Lung RADS 1: Negative. 12 month follow-up screening CT advised. Reviewed, dictated and finalized at location . ROOM TECHNICIAN Impression: Lung RADS 1: Negative. 12 month follow-up screening CT advised.
== END 2024-11-07 08:20 | disposition home or self-care (01) ==
LOC: MICIMG 08:20
PROVIDERS: PCP Family Medicine; Visit Provider Family Medicine
DX: Z12.11 Encounter for screening for malignant neoplasm of colon (principal); Z87.891 Personal history of nicotine dependence
CPT/HCPCS: 71271

== ENCOUNTER 2025-01-29 09:55 | Outpatient (CLI) | payer BC, SELFPAY ==
--- NOTE | ~2025-01-29 | XR_ITS ---
XR knee LT min 4V 01/29/2025 10:16 Indication: Left knee pain Procedure: 4 views left knee Comparison: No prior studies for comparison. Findings: No fracture, subluxation or dislocation. No significant joint effusion. There is mild osteo arthritis. No foreign bodies. Impression: 1: Mild osteoarthritis of the left knee. Reviewed, dictated and finalized at location A. Impression: 1: Mild osteoarthritis of the left knee.
== END 2025-01-29 09:56 | disposition home or self-care (01) ==
LOC: GOSHIMG 09:56
PROVIDERS: PCP Family Medicine; Visit Provider Family Medicine
DX: M17.12 Unilateral primary osteoarthritis, left knee (principal)
CPT/HCPCS: 73564

== ENCOUNTER 2025-03-06 07:59 | Outpatient (CLI) | payer BC, SELFPAY ==
--- NOTE | ~2025-03-06 | MM_ITS ---
EXAMINATION: MM screening danii BI w abad HISTORY: Screening mammogram TECHNIQUE: Craniocaudal and mediolateral oblique 3-D tomosynthesis images were obtained and synthetic 2-D images were generated. CAD analysis was submitted and interpreted. COMPARISON: 01/16/2024 through 09/21/2019 BREAST PARENCHYMAL COMPOSITION: There are scattered areas of fibroglandular density. FINDINGS: There is no evidence of suspicious mass, calcification, or architectural distortion to sug gest malignancy in either breast. There has been no suspicious interval change. IMPRESSION: 1. No mammographic evidence of malignancy. 2. Recommend routine screening mammography in one year. BI-RADS Category 1: Negative Reviewed, dictated and finalized at location B.
--- OUTSIDE RECORDS SUMMARY | 2025-03-06 08:03 | XMS_ITS | Encounter Summary ---
Author Organization [facility] Address [address] [place] [address] Care Team Providers Care Weaving Teacher Name Role Phone Hui Huggins DO Primary Care Provider [phone] Encounter Details Date Type Department Care Team (Late st Contact Info) Description 07/25/2020 Lab Requisition [facility] [address] [place] [address] Norbert De Oliveira MD [address] [place] [address] Social History Tobacco Use Types Packs/Day Years Used Date Smoking Tobacco: Every Day Cigarettes Alcohol Use Standard Drinks/Week Comments Not Asked 0 (1 standard drink = 0.6 oz pur e alcohol) Comments No Sex and Gender Information Value Date Recorded Sex Assigned at Not on file Legal Sex Female 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 Gender Identity Not on file Sexual Orientation Not on file documented as of this encounter Plan of Treatment Not on file documented as of this encounter Procedures Procedure Name Priority Date/Time Associated Diagnosis Comments DERMATOPATHOLOGY Routine 07/23/2020 12:0 0 AM CDT documented in this encounter Results * DERMATOPATHOLOGY (07/23/2020 12:00 AM CDT) Case Report Dermatopathology Report Case: [id number] Authorizing Provider: Norbert De Oliveira MD Collected: 07/23/2020 12:00 AM Ordering Location: [facility] Received: 07/25/2020 06:25 AM Pathologist: Amy Cody MD Specimen: Skin, right lower calf 0 1:30 PM CDT DERMATOPATHOLOGY LABORATORY Final Diagnosis Specimen A. SKIN, right lower calf: DERMATOFIBROMA (D23.9) 0 1:30 PM CDT DERMATOPATHOLOGY LABORATORY at 1330 CDT Clinical History R/O DF. 0 1:30 PM CDT DERMATOPATHOLOGY LABORATORY Gross Description Specimen A: Received is one formalin filled container labeled with the patient's name and designated right lower calf. The specimen consists of a punch biopsy measuring [id number], bisected. Jar 0. 0 1:30 PM CDT DERMATOPATHOLOGY LABORATORY Microscopic Description Specimen A. SKIN, right lower calf: There is epidermal hyperplasia. Within the dermis, there are fibrohistiocytic cells in haphazard array among coarse collagen bundles. 0 1:30 PM CDT DERMATOPATHOLOGY LABORATORY Disclaimer An external and internal positive and negative controls are appropriate for the histochemical, immunohistochemical and immunofluorescence stain(s) in this case (if any), except where stated explicitly. The performance characteristics of the stain(s) cited in this report were developed and its performance characteristic determined by the Dermatopathology Laboratory at [facility], directed by Dr. Lisandra Pacheco. These tests need not be, and therefore are not, approved by the [place] Food and Drug Administration. The tests are used for clinical purposes. Billing Codes Specimen Charges Stain Charges 37721 1 0 1:30 PM CDT DERMATOPATHOLOGY LABORATORY Embedded Images 0 1:30 PM CDT DERMATOPATHOLOGY LABORATORY Pathology/Cytolog y TISSUE SPECIMEN FROM SKIN / Unknown 07/23/2020 07/25/2020 6:25 AM CDT Norbert De Oliveira MD LAB - PATHOLOGY/CYTOLOGY ORD ERABLES Final Result DERMATOPATHOLOGY LABORATORY [facility] - Department of Dermatology [address], [address] [phone] documented in this encounter Visit Diagnoses Not on filedocumented in this encounter Care Teams Weaving Teacher Relationship Specialty Start Date End Date Hui Huggins DO [address] [place] [address] PCP - General 11/12/22 documented as of this encounter
--- OUTSIDE RECORDS SUMMARY | 2025-03-06 08:03 | XMS_ITS | Clinical Summary ---
Author Organization [facility] Address [address] [place] [address] Care Team Providers Care Forge Helper Name Role Phone Hui Huggins DO Primary Care Provider [phone] Source Comments [facility],non-owned Affiliates and Associated Physician Practices is amultiple site organization consisting of ambulatory clinics and hospital sitesin [place] and [place]. This disclosure is being madepursuant to the Care Everywhere program and may not contain all information available regarding this patient. Last updated 18.[facility] Allergies No known active allergies Medications * Be aware that medications may not be up to date on this document. Alwaysverify current medications with the patient. SIMVASTATIN PO Activ e Fluconazole (DIFLUCAN PO) Active Active Problems No known active problems Social History Tobacco Use Types Packs/Day Years Used Date Smoking Tobacco: Every Day Cigarettes Alcohol Use Standard Drinks/Week Comments Not Asked 0 (1 standard drink = 0.6 oz pur e alcohol) Comments No Sex and Gender Information Value Date Recorded Sex Assigned at Not on file Legal Sex Female 5:39 AM ONCOLOGY SOCIAL WORK Gender Identity Not on file Sexual Orientation Not on file Last Filed Vital Signs Vital Sign Reading Time Taken Comments Blood Pressure 122/84 03/06/2016 9:04 AM CDT Pulse 69 03/06/2016 9:04 AM CDT Temperature 36.4 C (97.6 F) 03/06/2016 9:04 AM CDT Respiratory Rate 18 03/06/2016 9:04 AM CDT Oxygen Saturation 97% 03/06/2016 9:04 AM CDT Inhaled Oxygen Concentration - - Weight 76.7 kg (169 lb) 03/06/2016 9:04 AM CDT Height 163.8 cm (5' 4.5) 03/06/2016 9:04 AM CDT Body Mass Index 28.56 03/06/2016 9:04 AM CDT Plan of Treatment Health Maintenance Due Date Last Done Comments COLOGUARD (AGES 45-75) - COL ON CA SCREENING 1960 COLON MONITORING 1960 COLONOSCOPY - COLON CA SCREENING 1960 CT COLONOGRAPHY - COLON CA SCREENING 1960 Colorectal Cancer Screening 1960 FIT - COLON CA SCREENING 1960 FLEX SIG - COLON CA SCREENING 1960 MAMMOGRAM 1960 PAP SMEAR 1960 HIV SCREENING 1975 HEPATITIS C SCREENING 08/22/1978 DTAP/TDAP/TD VACCINES (1 - Tdap) 1979 PNEUMOCOCCAL VACCINE 50+ (1 of 2 - PCV) 1979 ZOSTER VACCINE (1 of 2) 2010 COVID-19 VACCINE (1 - 2023-2 5 season) 2024 DEPRESSION SCREENING 10/03/2024 INFLUENZA VACCINE (Season Ended) 2025 Respiratory Syncytial Virus (RSV) Vaccine Pt: or over 60 yrs (1 - 1-dose 75+ series) 2035 HEPATITIS B VACCINE Aged Out No longe r eligible based on patient's age to complete this topic HIB VACCINE Aged Out No longer eligi ble based on patient's age to complete this topic HPV VACCINE Aged Out No longer eligi ble based on patient's age to complete this topic MENINGOCOCCAL (Group B) VACC INE SHARED DECISION-MAKING Aged Out No longer eligibl e based on patient's age to complete this topic MENINGOCOCCAL GROUPS A/C/Y/W VACCINE Aged Out No longer eligible b ased on patient's age to complete this topic Insurance [facility] Member Subscriber Plan / Payer (Ef fective 2011-Present) Name:Sarina Rod Relation to Subscriber:Self Name:Sarina Rod Payer ID:[id number] (NAIC) Group ID:[id number] Type:PPO Address: [address] [place] [id number] ANTHEM Care Teams Forge Helper Relationship Specialty Start Date End Date Hui Huggins DO [address] [place] [address] PCP - General 11/12/22
--- OUTSIDE RECORDS SUMMARY | 2025-03-06 08:03 | XMS_ITS | Encounter Summary ---
Author Organization [facility] Address [address] [place] [address] Care Team Providers Care Regional Economic Liaison Name Role Phone Hui Huggins DO Primary Care Provider [phone] Encounter Details Date Type Department Care Team (Late st Contact Info) Description 11/28/2023 Lab Requisition [facility] - DermPath Lab [address] [facility], [place] [address] Norbert De Oliveira MD [address] [place] [address] Social History Tobacco Use Types Packs/Day Years Used Date Smoking Tobacco: Every Day Cigarettes Alcohol Use Standard Drinks/Week Comments Not Asked 0 (1 standard drink = 0.6 oz pur e alcohol) Comments No Sex and Gender Information Value Date Recorded Sex Assigned at Not on file Legal Sex Female 5:39 AM FRANCHISE SALES MANAGER Gender Identity Not on file Sexual Orientation Not on file documented as of this encounter Plan of Treatment Not on file documented as of this encounter Procedures Procedure Name Priority Date/Time Associated Diagnosis Comments DERMATOPATHOLOGY Routine 11/23/2023 3:33 AM FRANCHISE SALES MANAGER documented in this encounter Results * DERMATOPATHOLOGY (11/23/2023 3:33 AM FRANCHISE SALES MANAGER) Case Report Dermatopathology Report Case: [id number] Authorizing Provider: Norbert De Oliveira MD Collected: 11/23/2023 03:33 AM Ordering Location: [facility] Received: 11/28/2023 09:01 AM Pathologist: Sandra Ashraf MD Specimens: A) - Skin, right distal anterior lateral thigh B) - Skin, right medial lower leg 12:49 PM [facility] DERMATOPATHOLOGY LABORATORY Final Diagnosis Specimen A. SKIN, right distal anterior lateral thigh: LICHEN PLANUS-LIKE KERATOSIS (BENIGN LICHENOID KERATOSIS) (L82.1) Specimen B. 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 The specimen consists of a shave biopsy measuring [id number] mm. Jar 0. Specimen B: Received is one formalin filled container labeled with the patient's name and designated right medial lower leg. The specimen consists of a shave biopsy measuring 10x6x1 mm. Jar 0. 12:49 PM [facility] DERMATOPATHOLOGY LABORATORY Microscopic Description Specimen A. SKIN, right distal anterior lateral thigh: The epidermis is mildly acanthotic. There is a lichenoid infiltrate with vacuolar changes of basilar keratinocytes and scattered necrotic keratinocytes. Specimen B. SKIN, right medial lower leg: The epidermis shows parakeratosis, full thickness disorderly maturation of keratinocytes, mitoses at different levels, and dyskeratotic cells. 12:49 PM [facility] DERMATOPATHOLOGY LABORATORY Disclaimer An external and internal positive and negative controls are appropriate for the histochemical, immunohistochemical and immunofluorescence stain(s) in this case (if any), except where stated explicitly. The performance characteristics of the stain(s) cited in this report were developed and its performance characteristic determined by the Dermatopathology Laboratory at [facility], directed by Dr. Lisandra Pacheco. These tests need not be, and therefore are not, approved by the [place] Food and Drug Administration. The tests are used for clinical purposes. Billing Codes Specimen Charges Stain Charges 76789 71681 1 1 02/27/202 4 12:49 PM FRANCHISE SALES MANAGER DERMATOPATHOLOGY LABORATORY Embedded Images 4 12:49 PM FRANCHISE SALES MANAGER DERMATOPATHOLOGY LABORATORY Pathology/Cytology TISSUE SPECIMEN FROM SKIN / Unknown 11/23/2023 3:33 AM FRANCHISE SALES MANAGER 11/28/2023 9:01 AM FRANCHISE SALES MANAGER Miscellaneous samples (specimen) TISSUE SPECIMEN FROM SKIN / Unknown 11/23/2023 3:33 AM FRANCHISE SALES MANAGER 11/28/2023 9:01 AM FRANCHISE SALES MANAGER Norbert De Oliveira MD LAB - PATHOLOGY/CYTOLOGY ORD ERABLES Final Result DERMATOPATHOLOGY LABORATORY [facility] - Department of Dermatology [facility] [address] [place] [address], [address] [phone] documented in this encounter Visit Diagnoses Not on filedocumented in this encounter Care Teams Regional Economic Liaison Relationship Specialty Start Date End Date Hui Huggins DO [address] [place] [address] PCP - General 11/12/22 documented as of this encounter
--- OUTSIDE RECORDS SUMMARY | 2025-03-06 08:03 | XMS_ITS | Clinical Summary ---
Author Organization [facility] [address] [place] [address] Care Team Providers Care Inspector Hairspring Truing Name Role Phone Ronan Vital MD Primary Care Provider [phone] Norbert De Oliveira MD Unavailable [phone] Allergies Active Allergy Reactions Criticality Noted Date Comments Doxycycline Stomach upset Low 02/20/2021 Medications acetaminophen (TYLENOL) 500 mg tablet Take 1 tablet (500 mg total) by mouth every 6 (six) hours as needed for pain Active ibuprofen (ADVIL,MOTRIN) 100 mg tablet Take by mouth every 6 (six) hours as needed for mild pain (pain scale 1-4) Active famotidine (PEPCID) 20 mg tablet Take 1 tablet (20 mg total) by mouth 2 (two) times a day 3 Active triamcinolone (KENALOG) 0.1 % cream APPLY TOPICALLY TO THE AFFECTED AREA TWICE DAILY 3 Active traMADoL (ULTRAM) 50 mg tablet Take 1 tablet (50 mg total) by mouth every 6 (six) hours as needed for pain (not controlled with tylenol and motrin) for up to 10 doses 10 tablet 4 Active scopolamine 1 mg over 3 days patch 3 day APPLY 1 PATCH TOPICALLY TO THE SKIN EVERY 3 DAYS NEEDED FOR MOTION SICKNESS 4 Active valACYclovir (VALTREX) 500 mg tablet Take 1 tablet (500 mg total) by mouth daily 90 tablet 2 Active rosuvastatin (CRESTOR) 10 mg tablet Take 1 tablet (10 mg total) by mouth daily Active Active Problems No known active problems Encounters Date Type Department Care Team Description 02/01/2025 Results Follow-Up [facility] [address] [facility] [address] [place] [address] Favio Godwin MD Surgical pathology 01/28/2025 10:15 AM CDT Office Visit [facility] [address] [place] [address] Outpatient Health [address] [place] [address] Favio Godwin MD Neoplasm of uncertain behavior (Primary Dx) 01/28/2025 Orders Only [facility] [address] [place] [address] Favio Godwin MD Neoplasm of uncertain behavior from Last 3 Months Immunizations Immunization Administration Dates Next Due Influenza, Quadrivalent, Rec ombinant, Egg Free, Preservative Free, Intramuscular 07/17/2020,06/07/2019 Influenza, Quadrivalent, Spl it, Preservative Free, Intramuscular 08/03/2018 Pfizer SARS-CoV-2 Monovalent Vaccination (12+ Yrs) PURPLE 12/25/2020,12/04/2020 Surgical History Surgery Date Site/Laterality Comments HYSTERECTOMY CATARACT EXTRACTION SECTION PLANTAR FASCIA SURGERY SECTION CATARACT EXTRACTION HYSTERECTOMY PARTIAL Medical History Medical History Date Comments Elevated cholesterol Pneumonia Spinal stenosis DDD (degenerative disc disease), cervical Family History Medical History Relation Name Comments Clotting disorder Brother Hypertension Brother Alcohol abuse Father Cancer Father Hypertension Father Arthritis Mother Cancer Other Diabetes Other Heart disease Other Hypertension Other Kidney disease Son Relation Name Status Comments Brother Father Mother Other Son Social History Tobacco Use Types Packs/Day Years Used Date Smoking Tobacco: Every Day Cigarettes Smokeless Tobacco: Never Tobacco Cessation:Ready to Q uit: No; Counseling Given: No Alcohol Use Standard Drinks/Week Comments Yes 0 (1 standard drink = 0.6 oz pur e alcohol) Comments No Sex and Gender Information Value Date Recorded Sex Assigned at Not on file Legal Sex Female 8:33 AM CDT Gender Identity Not on file Sexual Orientation Not on file Occupation Industry Job Start Date Job End Date retired Not on file Not on file Not on file Obstetrics History Last Filed Vital Signs Vital Sign Reading Time Taken Comments Blood Pressure 170/90 10/09/2024 8:15 AM LIBRARIAN Pulse 75 10/09/2024 8:15 AM LIBRARIAN Temperature 36.9 C (98.5 F) 10/09/2024 8:15 AM LIBRARIAN Respiratory Rate 16 10/09/2024 8:15 AM LIBRARIAN Oxygen Saturation 97% 10/09/2024 8:15 AM LIBRARIAN Inhaled Oxygen Concentration - - Weight 78.9 kg (173 lb 14.4 oz) 10/09/2024 8:15 AM LIBRARIAN Height 162.4 cm (5' 3.94) 03/20/2024 9:39 AM CD T Body Mass Index 29.91 03/20/2024 9:39 AM CDT Plan of Treatment Health Maintenance Due Date Last Done Comments Breast Cancer Screening-Mammogram 1960 Colon Cancer Screening-Colonoscopy 1960 Depression Screening 1960 Hepatitis C Screening 1960 DTaP/Tdap/Td Vaccine (1 - Tdap) 1971 Hepatitis B Screening 1978 Regular Well Visit/Exam 18-64 1978 Pneumococcal vaccine <65 (1 of 2 - PCV) 1979 Zoster Vaccine (1 of 2) 2010 Covid-19 Vaccine (3 - 2023-2 5 season) 2024 12/25/2020, 12/04/2020 Influenza Vaccine (Season Ended) 2025 07/17/2020, 06/07/2019, 08/03/2018 Cervical Cancer Screening Discontinued 2024, 03/20/2024, 09/06/2023 Procedures Procedure Name Priority Date/Time Associated Diagnosis Comments SURGICAL PATHOLOGY Routine 01/28/2025 12 :45 PM CDT Neoplasm of uncertain behavior PAP AND HIGH RISK HPV, REFLEX TO GENOTYPING Routine 10/09/2024 8:32 AM LIBRARIAN 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) Encounter for routine cancer follow-up from Last 3 Months or Most Recently Relevant to Health Maintenance Results * Surgical pathology (01/28/2025 12:45 PM CDT) Tissue (Skin, shave biopsy) 01/28/2025 12:45 PM CDT 01/28/2025 12:46 PM CDT [facility] - 01/31/2025 3:44 PM CDT EPIC results best viewed via link to PDF [facility] Dermatopathology [place] [address] [facility] [address], [address], [place] [address] [email or web address] Note to Patients: This report may contain a detailed description of human tissue sent by a health care provider to the laboratory for pathologic evaluation. The content of this report is essential for diagnosis and may provide important critical findings. This information may be unfamiliar to patients to review without a medical professional present. It is advised that the patient review this report in the presence of a health care provider who can answer questions and explain the details. FINAL REPORT Patient Information: PATIENT NAME: SARINA ROD SEX: F : 1960 (Age: 64) Specimen Information: COLLECTED: 01/28/2025 RECEIVED: 01/28/2025 REPORTED: 01/31/2025 Submitting Physician Information: Favio Godwin M.D. Dermatology [facility] [address] ([facility] [address] [facility] [address], [address] [place] [address], DERMATOPATHOLOGY REPORT RESULTS DIAGNOSIS: SKIN, LEFT CHEEK, SHAVE BIOPSY: SQUAMOUS CELL CARCINOMA IN SITU sxt/ajrr By this signature, I attest that the above diagnosis is based upon my personal examination of the slides(and/or other material indicated in the diagnosis). Joe Brock M.D. Report Electronically Reviewed and Signed Out By Joe Brock M.D. 01/31/2025 15:44:36 CLINICAL INFORMATION R/O BCC, SCC SPECIMEN DATA MICROSCOPIC DESCRIPTION: Atypical keratinocytes are present throughout the entire thickness of the epidermis. (D04.9) GROSS DESCRIPTION: Received in a formalin-containing bottle is a superficial fragment of brown, finely scaling and slightly crusted skin measuring 0.6 by 0.3 by 0.1 cm. The surgical margin is inked blue. The specimen is sectioned into 2 pieces and submitted entirely in a single cassette. Due to shrinkage, measurements may be different than those at time of procedure. sxt/tyc ICD-9 A; ZSD.1474 Clerical Data A; 87339 The characteristics of special, immunohistochemical, and immunofluorescence stains and in-situ hybridization tests performed by the [facility] were deemed acceptable in ongoing quality assurance test program manager measures and in compliance with regulations drawn from the Clinical Laboratory Improvement Act mf1613 (CLIA '88). Control reactions for all stains performed were deemed adequate and appropriate by a pathologist prior to evaluation of patient tissue. Some diagnoses were rendered with the assistance of laboratory-developed tests utilizing analyte-specific reagents; the performance characteristic of these tests were determined by [facility] and are not cleared or approved by the [place] Food an Drug administration. Laboratory developed test may only be performed in a facility that is certified by the [facility] as a high-complexity laboratory under CLIA '88. These tests are used for clinical purposes and are not investigational. Favio Godwin MD LAB PATHOLOGY ORDERABL ES Final Result [facility] CENTER [address] [place] [id number] * (ABNORMAL) Pap and High Risk HPV and Genotyping (Cytology Component) (10/09/2024 8:32 AM LIBRARIAN) Thin prep (Pap test) 10/09/2024 8:32 AM LIBRARIAN 10/09/2024 10:58 AM LIBRARIAN Narrative PATHOLOGY [facility] - 10/16/2024 3:37 PM LIBRARIAN EPIC results best viewed via link to PDF [facility] [place] [address] Note to Patients: This report may contain a detailed description of human tissue sent by a health care provider to the laboratory for pathologic evaluation. The content of this report is essential for diagnosis and may provide important critical findings. This information may be unfamiliar to patients to review without a medical professional present. It is advised that the patient review this report in the presence of a health care provider who can answer questions and explain the details. CYTOPATHOLOGY REPORT FINAL Patient Name: SARINA ROD Gender: F : 1960 (Age: 64) Address: [address] [place] [id number] Hospital #: [id number] Service: UNKNOWN Location: Patient Type: [facility] SPECIMEN Taken: 10/09/2024 Received: 10/09/2024 Accessioned: 10/09/2024 Reported: 10/16/2024 Physician(s): Yordan Leiva M.D. FINAL INTERPRETATION SOURCE OF SPECIMEN Liquid based Thin Prep pap with HPV: STATEMENT OF ADEQUACY - Satisfactory for evaluation - No endocervical/transformation zone sample present in a post menopausal patient GENERAL CATEGORIZATION: - Epithelial cell abnormality INTERPRETATION: - Atypical squamous cells of undetermined significance Comments (Abnormal-Positive for High Risk HPV) HPV HR 16- NOT DETECTED HPV HR 18- DETECTED HPV HR NON 16/18- NOT DETECTED Interpretive Data Nucleic acid amplification for detection of high-risk Human Papilloma virus (HPV) is performed by the Prabhakar Kevin 6800 HPV test. This assay specifically detects HPV-16 and HPV-18 genotypes. The following HPV genotypes are detected as high-risk HPV: HPV-31, 33, 35, 39, 45, 51, 52, 56, 58, 59, 66, and 68. This assay has been approved by the [place] Food and Drug Administration for detection of HPV in cervical specimens collected by a physician using an endocervical brush/spatula or cervical broom and placed in the ThinPrep Pap Test PreservCyt collection containers. The performance characteristics of this test have been verified by the [facility] Molecular Infectious Disease laboratory. Correlate with reported cytology results, as applicable. Interpretive data last revised 23 mf/10/16/2024 09:56 By this signature, I attest that the above diagnosis is based upon my personal examination of the slides(and/or other material indicated in the diagnosis). Wilfrid Jones M.D. Report Electronically Reviewed and Signed Out By Wilfrid Jones M.D. 10/16/2024 15:37:33 Jaylen Tolentino MS, CT(ASCP)PA Cervicovaginal Cytology (Pap Test) Disclaimer: The Pap test is a screening test used to detect cervical cancer and its precursors; it is not a diagnostic procedure. False negative and false positive results do occur. Pap test results should be interpreted in the context of pertinent clinical information and biopsy results as indicated. [facility] Clinical Laboratory Improvement Amendments (CLIA) mandate that cytologic and histologic results be correlated for laboratory customer quality engineer & improvement standards. FOR ALL HIGH-GRADE CASES we request submission of follow-up histological material and/or reports that have not been previously provided so that we may fulfill said required standards. Gross Description A. Liquid based Thin Prep pap with HPV: Vaginal - Screening ThinPrep Clinical Diagnosis and History Last Menstrual Period: 10 years The patient is a 64 year old female with hx VAIN. Report Images and scanned documents, if included only viewable in PDF version The performance characteristics of some immunohistochemical stains, in-situ hybridization and fluorescence in-situ hybridization tests and immunophenotyping by flow cytometry cited in this report (if any) were determined by the Surgical Pathology Department at [facility] as part of an ongoing quality assurance test program manager program and in compliance with federally mandated regulations drawn from the Clinical Laboratory Improvement Act of 1988 (CLIA '88). Some of these tests rely on the use of analyte specific reagents and are subject to specific labeling requirements by the [place] Food and Drug Administration. Such diagnostic tests may only be performed in a facility that is certified by the Department of Health and Human Services as a high complexity laboratory under CLIA '88. The FDA has determined that such clearance or approval is not necessary. This test is used for clinical purposes. It should not be regarded as investigational or for research. Nevertheless, federal rules concerning the medical use of analyte specific reagents require that the following disclaimer be attached to the report: This test was developed and its performance characteristics determined by the Surgical Pathology Department of [facility]. It has not been cleared or approved by the U. S. Food and Drug Administration. Yordan Leiva MD LAB CYTOLOGY ORDERABLES Fin al Result PATHOLOGY [facility] 3rd Floor [place], [place] [phone] from Last 3 Months or Most Recently Relevant to Health Maintenance Insurance [facility] Care Teams Inspector Hairspring Truing Relationship Specialty Start Date End Date Ronan Vital MD [address] [place] [address] PCP - General 01/24/18 Norbert De Oliveira MD [address] [place] [address] Referring Physician Dermatology 12/06/23
--- OUTSIDE RECORDS SUMMARY | 2025-03-06 08:03 | XMS_ITS | Continuity of Care Document ---
Author Organization [facility] Address [address] [place] [address] Phone Care Team Providers Care Canning Machine Operator Name Role Phone Sandoval OD, [place] Unavailable Unavailable Procedures Procedure Date Contact Lens Hydrophilic, Spherical Tax - Medical Contact Lens Check Contact Lens Check Eye Exam & Treatment Refraction No Charge Contact Lens Check Eye Exam & Treatment Refraction Eye Exam Established Pt Advance Directives Directive Yes / No Effective Date File Name No Information Encounters Encounter Description Practice Location Reason(s) For Visit Diagnoses Date Provider Providers Copied on Encounter [facility], [address] [place], [place] [address], [place], [place], [id number], tel:[phone] [facility] No Information 3201 0 Sandoval OD [place]. [address], [place], [address], [place]. tel:[phone] Referring Provider: Mikal Norris OD [address], [place], [place], [facility]. tel:[phone] [facility], [address] [place] [address] [address], [place], [place], [id number], tel:[phone] [facility] No Information 0-201 0 Sandoval OD [place]. [address], [place], [address], [place]. tel:[phone] [facility], [address], [place], [place], [id number], [place] tel:[phone] [facility] No Information 3-201 0 Sandoval OD [place]. [address] , [address], [place], [place], [facility], [place]. tel:[phone] [facility], [address], [place], [place], [id number], [place] tel:[phone] [facility] No Information 4-201 0 Sandoval OD [place]. [address] , [address], [place], [place], [facility], [place]. tel:[phone] [facility], [address] [place] [address] [address], [place], [place], [id number], [place] tel:[phone] [facility] No Information 2 2-200 8 Sandoval OD [place]. [address] , [address], [place], [address], [place]. tel:[phone] [facility], [address], [place], [place], [id number], [place] tel:[phone] [facility] No Information 4-200 8 Sandoval OD [place]. [address] , [address], [place], [address], [place]. tel:[phone] [facility], [address], [place], [place], [id number], [place] tel:[phone] [facility] No Information Dec- 9-200 8 Krishnasamy John. [address], [place], [address], [place]. tel:[phone] Referring Provider: Ronan Vital, [address] [place], [address]. tel:[phone] Family History Family Member Type Diagnosis Age At Onset No Information Payers Payer name Insurance type Covered democrat ID Authoriza tion(s) No Information Social History Type Description Quantity Date Captured Comments Sex Female Smoking Status No Information Chief Complaint And Reason For Visit No Information Reason For Referral Reason For Referral No Information History Of Present Illness Encounter Date Complaint History Of Prese nt Illness No Information Functional Status Date Functional Assessmen t No Information Instructions Date Instruction Additional Infor mation No Information Assessments Type Assessment Date No Information Patient Care Teams Name Effective Dates (start - stop) Status Members No Information
--- OUTSIDE RECORDS SUMMARY | 2025-03-06 08:03 | XMS_ITS | Referral Summary ---
Author Organization [facility] [address] [place] [id number] Care Team Providers Care Xray Tech Name Role Phone Ronan Vital MD Primary Care Provider [phone] Norbert De Oliveira MD Unavailable [phone] Encounters Date Type Department Care Team Description 02/01/2025 Results Follow-Up [facility] Dermatology [address] [place] [address] Outpatient Health [address] [place] [phone] Favio Godwin MD Surgical pathology 01/28/2025 Orders Only [facility] [address] [place] [address] Favio Godwin MD Neoplasm of uncertain behavior 01/28/2025 10:15 AM CDT Office Visit [facility] Dermatology [address] [place] [address] Outpatient Health [address] [place] [phone] Favio Godwin MD Neoplasm of uncertain behavior (Primary Dx) from Last 3 Months Allergies Active Allergy Reactions Criticality Noted Date [...] total) by mouth daily 90 tablet 2 4 Active rosuvastatin (CRESTOR) 10 mg tablet Take 1 tablet (10 mg total) by mouth daily Active Active Problems No known active problems Immunizations Immunization Administration Dates Next Due Influenza, Quadrivalent, Rec ombinant, Egg Free, Preservative Free, Intramuscular 07/17/2020,06/07/2019 Influenza, Quadrivalent, Spl it, Preservative Free, Intramuscular 08/03/2018 Pfizer SARS-CoV-2 Monovalent Vaccination (12+ Yrs) PURPLE 12/25/2020,12/04/2020 Social History Tobacco Use Types Packs/Day Years [...] file Not on file Not on file Last Filed Vital Signs Vital Sign Reading Time Taken Comments Blood Pressure 170/90 10/09/2024 8:15 AM RENTAL SALES AGENT Pulse 75 10/09/2024 8:15 AM [employer]ENTAL SALES AGENT Temperature 36.9 C (98.5 F) 10/09/2024 8:15 AM RENTAL SALES AGENT Respiratory Rate 16 10/09/2024 8:15 AM RENTAL SALES AGENT Oxygen Saturation 97% 10/09/2024 8:15 AM RENTAL SALES AGENT Inhaled Oxygen Concentration - - Weight 78.9 kg (173 lb 14.4 oz) 10/09/2024 8:15 AM RENTAL SALES AGENT Height 162.4 cm (5' 3.94) 03/20/2024 9:39 AM CD T Body Mass Index 29.91 03/20/2024 9:39 AM CDT Plan of Treatment Not on file Procedures Procedure Name Priority Date/Time Associated Diagnosis Comments SURGICAL PATHOLOGY Routine 01/28/2025 12 :45 PM CDT Neoplasm of uncertain behavior PAP AND HIGH RISK HPV, REFLEX TO GENOTYPING Routine 10/09/2024 8:32 AM RENTAL SALES AGENT 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) Encounter for routine cancer follow-up from Last 3 Months or Most Recently Relevant to Health Maintenance Results * Surgical pathology (01/28/2025 12:45 PM CDT) Tissue (Skin, shave biopsy) 01/28/2025 12:45 PM CDT 01/28/2025 12:46 PM CDT [facility] - 01/31/2025 3:44 PM CDT [facility] results best viewed via link to PDF [facility] [address] [place] [address], [address], [place] [address] [email or web address] Note to Patients: This report may [...] Submitting Physician Information: Favio Godwin M.D. Dermatology [facility] [address] ([facility] [address] [facility], [address] [place] [address], DERMATOPATHOLOGY REPORT RESULTS DIAGNOSIS: SKIN, LEFT CHEEK, [...] sxt/tyc ICD-9 A; ZSD.1474 Clerical Data A; 10631 The characteristics of special, immunohistochemical, and immunofluorescence stains and in-situ hybridization tests performed by the [facility] were deemed acceptable in ongoing manufacturing quality manager measures and in compliance with regulations drawn from the Clinical Laboratory Improvement Act fy0928 (CLIA '88). Control reactions for all stains performed were deemed adequate and appropriate by a pathologist prior to evaluation of patient tissue. Some diagnoses were rendered with the assistance of laboratory-developed tests utilizing analyte-specific reagents; the performance characteristic of these tests were determined by [facility] and are not cleared or approved by the [place] Food an Drug administration. Laboratory developed test may only be performed in a facility that is certified by the [facility] as a high-complexity laboratory under CLIA '88. These tests are used for clinical purposes and are not investigational. Favio Godwin MD LAB PATHOLOGY ORDERABL ES Final Result [facility]MATOPATHOLOGY CENTER [address] [place] [address] * (ABNORMAL) Pap and High Risk HPV and Genotyping (Cytology Component) (10/09/2024 8:32 AM RENTAL SALES AGENT) Thin prep (Pap test) 10/09/2024 8:32 AM RENTAL SALES AGENT 10/09/2024 10:58 AM RENTAL SALES AGENT Narrative PATHOLOGY [facility] - 10/16/2024 3:37 PM RENTAL SALES AGENT EPIC results best viewed via link to PDF [facility] [place] [address] Note to Patients: This report may contain [...] Gender: F : 1960 (Age: 64) Address: [address] [place], [place] [phone] Hospital #: [id number] Service: UNKNOWN Location: Patient Type: [facility] SPECIMEN Taken: 10/09/2024 Received: 10/09/2024 Accessioned: 10/09/2024 [...] virus (HPV) is performed by the Prabhakar Kevni 6800 HPV test. This assay specifically detects [...] this test have been verified by the [facility] Molecular Infectious Disease laboratory. Correlate [...] clinical information and biopsy results as indicated. [facility] Clinical Laboratory Improvement Amendments (CLIA) mandate that cytologic and histologic results be correlated for laboratory quality improvement specialist & improvement standards. FOR ALL HIGH-GRADE CASES [...] determined by the Surgical Pathology Department at [facility] as part of an ongoing manufacturing quality manager program and in compliance with federally [...] determined by the Surgical Pathology Department of [facility]. It has not been cleared or approved by the U. S. Food and Drug Administration. Yordan Leiva MD LAB CYTOLOGY ORDERABLES Fin al Result PATHOLOGY [facility] 3rd Floor [place], [place] [phone] from Last 3 Months or Most Recently Relevant to Health Maintenance Insurance [facility] FEDERAL Care Teams Xray Tech Relationship Specialty Start Date End Date Ronan Vital MD [address] [place] [address] PCP - General 01/24/18 Norbert De Oliveira MD [address] [place] [address] Referring Physician Dermatology 12/06/23
--- OUTSIDE RECORDS SUMMARY | 2025-03-06 08:03 | XMS_ITS | Encounter Summary ---
Author Organization [facility] Address [address] [place] [address] Phone Care Team Providers Care Wind Projects Supervisor Name Role Phone Ronan Vital MD Primary Care Provider [phone] Norbert De Oliveira MD Unavailable [phone] Encounter Details Date Type Department Care Team (Late st Contact Info) Description 02/01/2025 Results Follow-Up [facility] Dermatology [address] [facility] [facility] [address] [place] [phone] Favio Godwin MD [address] [facility] [address] [place] [address] Surgical pathology Social History Tobacco Use Types Packs/Day Years Used Date Smoking Tobacco: Every Day Cigarettes Smokeless Tobacco: Never Alcohol Use Standard Drinks/Week Comments Yes 0 [...] file Not on file Not on file documented as of this encounter Miscellaneous Notes * Result Encounter Note - Favio Godwin MD - 02/01/2025 2:41 PM CDT Called with results. Please call and schedule mohs. Thanks! documented in this encounter Plan of Treatment Not on file documented as of this encounter Visit Diagnoses Not on filedocumented in this encounter Care Teams Wind Projects Supervisor Relationship Specialty Start Date End Date Ronan Vital MD [address] [place] [address] PCP - General 01/24/18 Norbert De Oliveira MD [address] [place] [address] Referring Physician Dermatology 12/06/23 documented as of this encounter
== END 2025-03-06 08:00 | disposition home or self-care (01) ==
LOC: ANHIMG 08:00
PROVIDERS: PCP Family Medicine; Visit Provider Family Medicine
DX: Z12.31 Encounter for screening mammogram for malignant neoplasm of breast (principal)
CPT/HCPCS: 77063; 77067

== ENCOUNTER 2025-08-16 09:04 | Outpatient (CLI) | payer BC, SELFPAY ==
--- NOTE | ~2025-08-16 | XR_ITS ---
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 Technique: 2 views obtained. Findings: The lungs are clear, no effusion. No pneumothorax. Heart is normal size. Mediastinal and hilar contours are within normal limits. Bony thorax no acute abnormality. Impression: No acute cardiopulmonary abnormality. Reviewed, dictated and finalized at location P. UGATED FASTENER DRIVER Impression: No acute cardiopulmonary abnormality.
== END 2025-08-16 09:05 | disposition home or self-care (01) ==
LOC: GOSHIMG 09:04
PROVIDERS: PCP Family Medicine; Visit Provider Family Medicine
DX: R05.9 Cough, unspecified (principal)
CPT/HCPCS: 71046

== ENCOUNTER 2025-09-30 11:24 | Outpatient (CLI) | payer BC, SELFPAY ==
--- NOTE | ~2025-09-30 | XR_ITS ---
Examination: XR chest 2V Clinical History: R06.02 - Shortness of breath Comparison: 08/16/2025 Technique: PA and Lateral Findings: Cardiomediastinal silhouette normal size and configuration. Lungs clear. No acute bony abnormality. IMPRESSION: 1. No acute cardiopulmonary findings. Reviewed, dictated and finalized at location R. AIN/CHECK AIRMAN
== END 2025-09-30 11:25 | disposition home or self-care (01) ==
LOC: GOSHIMG 11:25
PROVIDERS: PCP Family Medicine; Visit Provider Family Medicine
DX: R06.02 Shortness of breath (principal); F17.200 Nicotine dependence, unspecified, uncomplicated
CPT/HCPCS: 71046